=== PATIENT | female | born 1980 | race African-American/Black ===

== ENCOUNTER 2023-04-25 02:45 | Emergency (ER) | payer SELFPAY ==
[2023-04-25 02:55] VITALS: BP 161/96; PULSE 71; RESP 20; TEMP 97.6; BMI 35.5
[2023-04-25] MEDS ORDERED: ALBUTEROL SO4 HFA INHALER IH ONE (03:18)
[2023-04-25] MEDS ORDERED: DEXAMETHASONE SOD PHOSPHATE 10 MG/1 ML VIAL IM ONE (03:31)
[2023-04-25] MEDS: ALBUTEROL SO4 2.5/IPRATROPIUM 0.5 INH SOL 3 ML VIAL.NEB. NEB SCH ×2 (03:39→03:40)
[2023-04-25] MEDS ORDERED: DEXAMETHASONE SOD PHOSPHATE 10 MG/1 ML VIAL ONE (03:46)
== END 2023-04-25 05:17 | disposition home or self-care (01) ==
LOC: JER 02:45
PROC: 3E023GC Introduction of Other Therapeutic Substance into Muscle, Percutaneous Approach (ICD-10-PCS; principal; 2023-04-25)
PROC: 3E0F7GC Introduction of Other Therapeutic Substance into Respiratory Tract, Via Natural or Artificial Opening (ICD-10-PCS; 2023-04-25)
DX: R05.9 Cough, unspecified (principal); R06.2 Wheezing; J11.1 Influenza due to unidentified influenza virus with other respiratory manifestations; Z20.822 Contact with and (suspected) exposure to COVID-19
CPT/HCPCS: 0241U-QW; 99284-25; J1100